=== PATIENT | male | born 1965 | race African-American/Black ===

== ENCOUNTER 2016-09-20 01:32 | Emergency (ER) | payer OTHER ==
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
== END 2016-09-20 01:35 | disposition home or self-care (01) ==
LOC: CED 01:32
DX: S46.912A Strain of unspecified muscle, fascia and tendon at shoulder and upper arm level, left arm, initial encounter (principal); F17.210 Nicotine dependence, cigarettes, uncomplicated; V43.52XA Car driver injured in collision with other type car in traffic accident, initial encounter
CPT/HCPCS: 73030; 99283

== ENCOUNTER 2016-09-21 16:23 | Emergency (ER) | payer OTHER | END 2016-09-21 16:32 | disposition home or self-care (01) | LOC: CFTX 16:23 | DX: S46.912A Strain of unspecified muscle, fascia and tendon at shoulder and upper arm level, left arm, initial encounter (principal); V49.40XA Driver injured in collision with unspecified motor vehicles in traffic accident, initial encounter; Y92.410 Unspecified street and highway as the place of occurrence of the external cause | CPT/HCPCS: 96372; 99283; J1885 ==

== ENCOUNTER 2016-09-24 20:47 | Emergency (ER) | payer SELFPAY ==
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
[2016-09-24 19:58] LABS: URINE SOURCE CLEAN CATCH
[2016-09-24 20:04] LABS: BASOPHIL# 0.1 X10e3 (0-0.3); BASOPHIL% 0.9 % (0-2.5); EOSINOPHIL# 0.1 X10e3 (0-0.7); EOSINOPHIL% 1.3 % (0.0-7.0); HEMATOCRIT 47.7 % (38.0-50.0); HEMOGLOBIN 15.5 gm/dL (13.0-16.0); LYMPHOCYTE# 3.3 X10e3 (1.0-3.5); LYMPHOCYTE% 42.6 % (17.0-45.0); MEAN CELL VOLUME 82.1 FL (83-96); MEAN CORPUSCULAR HEMOGLOBIN 26.7 PG (28-34); MEAN CORPUSCULAR HGB CONC 32.6 g/dL (30-36); MEAN PLATELET VOLUME 9.2 FL (6.5-11.5); MONOCYTE% 12.4 % (3.0-12.0); NEUTROPHIL# 3.3 X10e3 (1.5-7.1); NEUTROPHIL% 42.8 % (40-75); PLATELET COUNT 168 X10e3 (140-420); RED BLOOD COUNT 5.81 X10e (3.90-5.60); RED CELL DISTRIBUTION WIDTH 13.7 % (11.0-15.5); WHITE BLOOD COUNT 7.8 X10e3 (4.0-10.5)
[2016-09-24 20:06] LABS: DIFF IND NO
[2016-09-24 20:12] LABS: POC - CKMB <1.0 ng/mL (0.0-7.9); POC - TROPONIN <0.05 ng/mL (<=0.05)
[2016-09-24 20:22] LABS: URINE APPEARANCE CLEAR; URINE BILIRUBIN NEG (NEG); URINE BLOOD NEG (NEG); URINE COLOR YELLOW; URINE GLUCOSE NEG (NEG); URINE KETONE NEG (NEG); URINE LEUKOCYTE ESTERASE NEG (NEG); URINE NITRATE NEG (NEG); URINE PH 5.5 (5-8); URINE PROTEIN NEG (NEG); URINE SPECIFIC GRAVITY 1.027 (1.003-1.035); URINE UROBILINOGEN 0.2 MG/DL (NEG)
[2016-09-24 20:23] LABS: CULTURE INDICATED? NO
[2016-09-24 20:43] LABS: CALCIUM SERUM 8.9 mg/dL (8.4-10.2); GLOM FILT RATE Estimated 102.7 mL/min (>60); POTASSIUM 3.6 mmol/L (3.5-5.1)
[2016-09-26 19:18] LABS: CHLAMYDIA TRACH Not Detected (Not Detected); N GONOR Not Detected (Not Detected)
== END 2016-09-24 22:40 | disposition home or self-care (01) ==
LOC: CED 20:47
PROVIDERS: Emergency Medicine
DX: R36.1 Hematospermia (principal)
CPT/HCPCS: 36415; 74177; 80048; 81003; 82553; 84484; 85025; 87491; 87591; 96360; 99284; Q9967